=== PATIENT | male | born 1980 | race Caucasian/White ===

== ENCOUNTER 2017-03-26 21:25 | Emergency (ER) | payer SELFPAY ==
[2017-03-26 21:29] VITALS: BP 127/65
--- NOTE | 2017-03-26 21:42 | ER Document Report ---
ED Medical Screen (RME) - General Chief Complaint: Foot Injury Stated Complaint: RIGHT FOOT INJURY Time Seen by Provider: 03/26/17 21:36 TRAVEL OUTSIDE OF THE [place] IN LAST 30 DAYS: No - HPI Notes: 03/26/17 21:39 Patient presents to the ED complaining of right foot pain status post crush injury by 2 x 4 this midafternoon. Patient states that he has been having right foot pain ever since then that is sharp in nature. He is able to ambulate but is limping on that foot. Pain does not radiate. He is still able to move his foot in all directions. He denies any numbness or tingling. No known drug allergies. I have treated and performed a rapid initial assessment of this patient. A comprehensive ED assessment and evaluation of the patient, analysis of test results and completion of medical decision making process will be conducted by additional ED providers. Past Medical History Renal/ Medical History: Denies: Hx Peritoneal Dialysis Review of Systems - Review of Systems Cardiovascular: denies: Chest pain Respiratory: denies: Short of breath Physical Exam - Vital signs Vitals: Temp Pulse Resp BP Pulse Ox 98.1 F 82 18 127/65 H 97 03/26/17 21:28 03/26/17 21:28 03/26/17 21:28 03/26/17 21:28 03/26/17 21:28 - Extremities Ankle: Nontender. No: Deformity, Ecchymosis Foot: Tender - metatarsals approx #2-4 Rt foot, Other - Pulses 2+. Sensation intact distal. Course - Vital Signs Vital signs: Temp Pulse Resp BP Pulse Ox 98.1 F 82 18 127/65 H 97 03/26/17 21:28 03/26/17 21:28 03/26/17 21:28 03/26/17 21:28 03/26/17 21:28
--- NOTE | 2017-03-26 21:49 | ER Document Report ---
ED Extremity Problem, Lower - General Mode of Arrival: Wheelchair Information source: Patient TRAVEL OUTSIDE OF THE [place] IN LAST 30 DAYS: No - HPI Patient complains to provider of: Injury, Pain, Swelling Location: Foot - right Occurred: This afternoon - Refer to HPI notes <JANETTE KING - Last Filed: 03/26/17 21:56> <CORINA DA SILAV - Last Filed: 03/26/17 22:10> - General Chief Complaint: Foot Injury Stated Complaint: RIGHT FOOT INJURY Time Seen by Provider: 03/26/17 21:36 Notes: Patient is a 36-year-old male presenting to the emergency department right foot after an injury. Patient had a 2 x 6 fall and landed on the top of his right foot at noon today. Patient states he was helping his friend build a shed when the flat part of the board came down on top of his right foot. Patient states it did not hurt at first but gradually he has had increased pain and swelling to the area. Patient also states that he has some pain to his right lateral rib cage which only hurts occasionally and he states he has had it for a long time. Patient has no surgical history and is not on any regular medications except for a complete vitamin daily. Patient occasionally smokes. Patient used to be a heavy alcohol user but now only drinks alcohol on occasion. (JANETTE KING) Past Medical History - General Information source: Patient - Social History Smoking Status: Current Some Day Smoker Frequency of alcohol use: Occasional Drug Abuse: None Family History: None Patient has suicidal ideation: No Patient has homicidal ideation: No - Medical History Medical History: Negative Surgical Hx: Negative <JANETTE KING - Last Filed: 03/26/17 21:56> Review of Systems - Review of Systems Constitutional: No symptoms reported EENT: No symptoms reported Cardiovascular: No symptoms reported Respiratory: No symptoms reported Gastrointestinal: No symptoms reported Genitourinary: No symptoms reported Male Genitourinary: No symptoms reported Musculoskeletal: See HPI Skin: No symptoms reported Hematologic/Lymphatic: No symptoms reported Neurological/Psychological: No symptoms reported -: Yes All other systems reviewed and negative <JANETTE KING - Last Filed: 03/26/17 21:56> Physical Exam - Vital signs Interpretation: Normal <JANETTE KING - Last Filed: 03/26/17 21:56> <CORINA DA SILVA - Last Filed: 03/26/17 22:10> - Vital signs Vitals: Temp Pulse Resp BP Pulse Ox 98.1 F 82 18 127/65 H 97 03/26/17 21:28 03/26/17 21:28 03/26/17 21:28 03/26/17 21:28 03/26/17 21:28 - Notes Notes: GENERAL: Alert, interacts well. No acute distress. HEAD: Normocephalic, atraumatic. EYES: Appear normal. Pupils equal, round, and reactive to light. ENT: Moist mucus membranes, tongue midline. NECK: Full range of motion. Supple. Trachea midline. LUNGS: Clear to auscultation bilaterally, no wheezes, rales, or rhonchi. No respiratory distress. Some mild tenderness to palpation over the right lateral rib cage which is not a new acute symptom. HEART: Regular rate and rhythm. No murmurs, gallops, or rubs. ABDOMEN: Soft, non-tender. Non-distended. Normal bowel sounds. EXTREMITIES: Moves all 4 extremities spontaneously. Tenderness to palpation of the right dorsal distal foot, there is also some slight discoloration and swelling to the right dorsal distal foot. NEUROLOGICAL: Alert and oriented x3. Normal speech. No focal neurological deficits. GSC 15. PSYCH: Normal affect, normal mood. SKIN: Warm, dry, normal turgor. No rashes or lesions noted. (JANETTE KING) Course - Diagnostic Test Radiology reviewed: Image reviewed - No fracture is seen in the right foot. <CORINA DA SILVA - Last Filed: 03/26/17 22:10> - Vital Signs Vital signs: Temp Pulse Resp BP Pulse Ox 98.1 F 82 18 127/65 H 97 03/26/17 21:28 03/26/17 21:28 03/26/17 21:28 03/26/17 21:28 03/26/17 21:28 Discharge <JANETTE KING - Last Filed: 03/26/17 21:56> <CORINA DA SILVA - Last Filed: 03/26/17 22:10> - Discharge Clinical Impression: Contusion of foot, right Qualifiers: Encounter type: initial encounter Qualified Code(s): S90.31XA - Contusion of right foot, initial encounter Condition: Stable Disposition: HOME, SELF-CARE Additional Instructions: Contusion: Your injury has resulted in a contusion -- a crushing of the deep tissues. No injury to important structures was detected during the physician's exam. Contusions vary in the amount of pain they cause, and in the length of time required for healing. Typically, the area will become bruised, and will remain painful to touch for two or three weeks. However, most patients are back to working and playing within a few days. After the initial period of rest and cold-packs, your symptoms (together with the doctor's recommendations) will determine how rapidly you can get back to full activity. Usually this means "do what feels okay, but don't do things that hurt." If re-examination was recommended, it's important to follow up as instructed. Call the doctor or return any time if pain increases, if swelling becomes severe, if you develop numbness or weakness in an injured extremity, or if any other alarming symptoms occur. ELEVATE THE FOOT ALL THE TIME. LIMIT WALKING AND WEIGHT BEARING. USE ICE-PACKS THE FIRST 12-24 HOURS. TAKE THE PAIN MEDICATION PRESCRIBED. FOLLOW UP WITH A LOCAL MEDICAL DOCTOR OR ORTHOPEDIC DOCTOR IF NOT IMPROVING. Prescriptions: Hydrocodone/Acetaminophen [[place] 5-325 mg Tablet] 1 tab PO Q4 PRN #15 tablet PRN Reason: Sebastianibe Attestation: 03/26/17 22:09 I personally performed the services described in the documentation, reviewed and edited the documentation which was dictated to the scribe in my presence, and it accurately records my words and actions. (CORINA DA SILVA) Becky Documentation - Scribe Written by Becky:: Becky An, 03/26/2017 21:55 acting as scribe for :: Adelfo <JANETTE KING - Last Filed: 03/26/17 21:56>
[2017-03-26] MEDS ORDERED: HYDROCODONE/ACETAMINOPHEN 5-325 MG 6 TAB/DSPK PO PRN (22:09)
--- NOTE | 2017-03-26 22:11 | RADIOLOGY REPORT (SQ) ---
EXAM DESCRIPTION: FOOT RIGHT COMPLETE COMPLETED DATE/TIME: 03/26/2017 10:02 pm REASON FOR STUDY: right foot pain s/p crush injury COMPARISON: None. NUMBER OF VIEWS: Three views. TECHNIQUE: AP, lateral and oblique radiographic images acquired of the right foot. LIMITATIONS: None. FINDINGS: MINERALIZATION: Normal. BONES: No acute fracture or dislocation. No worrisome bone lesions. JOINTS: No effusions. SOFT TISSUES: No soft tissue swelling. No foreign body. OTHER: No other significant finding. IMPRESSION: NEGATIVE STUDY OF THE RIGHT FOOT. NO RADIOGRAPHIC EVIDENCE OF ACUTE INJURY. TECHNICAL DOCUMENTATION: JOB ID: [id number] [employer]- All Rights Reserved
== END 2017-03-26 22:26 | disposition home or self-care (01) ==
LOC: ER 21:25
DX: S90.31XA Contusion of right foot, initial encounter (principal); M79.671 Pain in right foot; M79.89 Other specified soft tissue disorders; R07.81 Pleurodynia; F17.200 Nicotine dependence, unspecified, uncomplicated; W17.89XA Other fall from one level to another, initial encounter
CPT/HCPCS: 99283

== ENCOUNTER 2017-05-08 07:41 | Emergency (ER) | payer SELFPAY ==
[2017-05-08] MEDS ORDERED: ACYCLOVIR 200 MG CAPSULE PO ONE ×3 (09:07→09:53)
[2017-05-08] MEDS ORDERED: PREDNISONE 20 MG TABLET PO ONE (09:07)
[2017-05-08] MEDS ORDERED: ACYCLOVIR 800 MG TABLET PO ONE (09:09)
--- NOTE | 2017-05-08 09:13 | ER Document Report ---
ED General - General Chief Complaint: Rash Stated Complaint: POSSIBLE RASH Time Seen by Provider: 05/08/17 08:28 TRAVEL OUTSIDE OF THE [place] IN LAST 30 DAYS: No - HPI Patient complains to provider of: Rash Notes: Patient coming in for evaluation of her rash. Patient states ongoing for the last 3 days started on his back spread now to his underarm region and down to top of his chest states painful burning sensation. Patient does state that he had chickenpox when he was a child in a history of fevers chills nausea vomiting diarrhea patient is on the chemotherapy or immunocompromising drugs at this time. Patient states that taking any medication soap applying talcum powder to the area for his treatment plans - Related Data Allergies/Adverse Reactions: No Known Allergies Allergy (Verified 05/08/17 07:59) Past Medical History - Social History Smoking Status: Unknown if Ever Smoked Family History: None Patient has suicidal ideation: No Patient has homicidal ideation: No Renal/ Medical History: Denies: Hx Peritoneal Dialysis - Immunizations Hx Diphtheria, Pertussis, Tetanus Vaccination: Yes Review of Systems - Review of Systems Constitutional: No symptoms reported EENT: No symptoms reported Cardiovascular: No symptoms reported Respiratory: No symptoms reported Gastrointestinal: No symptoms reported Genitourinary: No symptoms reported Male Genitourinary: No symptoms reported Musculoskeletal: No symptoms reported Skin: Rash Hematologic/Lymphatic: No symptoms reported Neurological/Psychological: No symptoms reported -: Yes All other systems reviewed and negative Physical Exam - Vital signs Vitals: Temp Pulse Resp BP Pulse Ox 98.1 F 96 18 113/64 97 05/08/17 07:57 05/08/17 07:57 05/08/17 07:57 05/08/17 07:57 05/08/17 07:57 Interpretation: Normal - General General appearance: Appears well, Alert - HEENT Head: Normocephalic, Atraumatic Eyes: Normal Pupils: PERRL - Respiratory Respiratory status: No respiratory distress Chest status: Nontender Breath sounds: Normal Chest palpation: Normal - Cardiovascular Rhythm: Regular Heart sounds: Normal auscultation Murmur: No - Abdominal Inspection: Normal Distension: No distension Bowel sounds: Normal Tenderness: Nontender Organomegaly: No organomegaly - Back Back: Normal, Nontender - Extremities General upper extremity: Normal inspection, Nontender, Normal color, Normal ROM , Normal temperature General lower extremity: Normal inspection, Nontender, Normal color, Normal ROM , Normal temperature, Normal weight bearing. No: Martha's sign - Neurological Neuro grossly intact: Yes Cognition: Normal Orientation: AAOx4 [place] Coma Scale Eye Opening: Spontaneous [place] Coma Scale Verbal: Oriented [place] Coma Scale Motor: Obeys Commands [place] Coma Scale Total: 15 Speech: Normal Motor strength normal: LUE, RUE, LLE, RLE Sensory: Normal - Psychological Associated symptoms: Normal affect, Normal mood - Skin Skin Temperature: Warm Skin Moisture: Dry Skin Color: Other - Blistering rash with vesicles starting along the left side the back going underneath the axilla to the top of the chest consistent with shingles. Rash is dermatomal in nature Course - Re-evaluation Re-evalutation: 05/08/17 13:39 Patient presents with shingles. Will start on antivirals steroids and Neurontin for pain control recommend also take Tylenol Motrin. Patient was also recommended follow-up primary care physician - Vital Signs Vital signs: Temp Pulse Resp BP Pulse Ox 98.0 F 80 18 115/60 97 05/08/17 09:37 05/08/17 09:37 05/08/17 09:37 05/08/17 09:37 05/08/17 09:37 Discharge - Discharge Clinical Impression: Shingles Qualifiers: Herpes zoster complications: without complications Qualified Code(s): B02.9 - Zoster without complications Condition: Good Disposition: HOME, SELF-CARE Instructions: Shingles ([facility] [place]) Additional Instructions: Please follow-up with your primary care physician. Your examination is consistent with a shingles infection which is a viral infection on the nerves that run along the skin. We will treat you with antiviral medication called acyclovir steroids, prednisone will help out with inflammation and Neurontin for the pain. It is very important to follow-up with your physician Prescriptions: Acyclovir 800 mg PO 5XD 7 Days tablet Gabapentin [Neurontin 300 mg Capsule] 300 mg PO Q8 #90 cap Prednisone [Deltasone] 60 mg PO DAILY #24 tablet Forms: Return to Work Referrals: ELROY RABAGO MD [COMMUNITY BASED STAFF] - Follow up as needed
[2017-05-08 09:39] VITALS: BP 115/60
== END 2017-05-08 09:39 | disposition home or self-care (01) ==
LOC: ER 07:41
DX: B02.9 Zoster without complications (principal)
CPT/HCPCS: 99282; J7512

== ENCOUNTER 2018-08-08 08:30 | Emergency (ER) | payer OTHER ==
[2018-08-08] MEDS ORDERED: PREDNISONE 20 MG TABLET PO ONE (09:12)
[2018-08-08] MEDS ORDERED: IBUPROFEN 600 MG TABLET PO ONE (09:12)
[2018-08-08] MEDS ORDERED: CYCLOBENZAPRINE HCL 10 MG TABLET PO ONE (09:12)
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
[2018-08-08 10:33] VITALS: BP 125/75
== END 2018-08-08 10:40 | disposition home or self-care (01) ==
LOC: ER 08:30
DX: S29.012A Strain of muscle and tendon of back wall of thorax, initial encounter (principal); M54.2 Cervicalgia; M54.5 Low back pain; V49.50XA Passenger injured in collision with unspecified motor vehicles in traffic accident, initial encounter
CPT/HCPCS: 99284; 72110; J7512

== ENCOUNTER 2019-12-03 08:26 | Emergency (ER) | payer OTHER ==
[2019-12-03 09:40] VITALS: BP 129/67
--- NOTE | 2019-12-03 16:00 | ER Document Report ---
Entered by FABIOLA SAHU SCRIBE 12/03/19 0854 Acting as scribe for:ANDREW PIERRE MD ED General - General Chief Complaint: Hemorrhoids Stated Complaint: POSSIBLE HEMORRHOIDS Time Seen by Provider: 12/03/19 08:45 Information source: Patient Notes: This 39 year old male patient presents to the emergency department today with complaints of hemorrhoids for the past x6 days. Patient states there was blood from the hemorrhoids last night. Patient denies pain but states they are uncomfortable. Patient states his bowel movement is normal and denies having diarrhea. Patient states he usually get hemorrhoids but they do not usually bleed. TRAVEL OUTSIDE OF THE [place] IN LAST 30 DAYS: No - Related Data Allergies/Adverse Reactions: No Known Allergies Allergy (Verified 12/03/19 08:31) Home Medications: multivitamin. potassium. allergy. ibuprofen. percocet Past Medical History - General Information source: Patient - Social History Smoking Status: Never Smoker Cigarette use (# per day): No Chew tobacco use (# tins/day): No Frequency of alcohol use: None Drug Abuse: None Family History: None Patient has suicidal ideation: No Patient has homicidal ideation: No - Immunizations Hx Diphtheria, Pertussis, Tetanus Vaccination: Yes Review of Systems - Review of Systems Constitutional: No symptoms reported EENT: No symptoms reported Cardiovascular: No symptoms reported Respiratory: No symptoms reported Gastrointestinal: See HPI, Other - Hemorrhoids. denies: Diarrhea Genitourinary: No symptoms reported Male Genitourinary: No symptoms reported Musculoskeletal: No symptoms reported Skin: No symptoms reported Hematologic/Lymphatic: No symptoms reported Neurological/Psychological: No symptoms reported -: Yes All other systems reviewed and negative Physical Exam - Vital signs Vitals: Temp Pulse Resp BP Pulse Ox 98 F 72 18 141/83 H 96 12/03/19 08:29 12/03/19 08:29 12/03/19 08:29 12/03/19 08:29 12/03/19 08:29 - General General appearance: Appears well, Alert - HEENT Head: Normocephalic, Atraumatic Eyes: Normal Pupils: PERRL - Respiratory Respiratory status: No respiratory distress Chest status: Nontender Breath sounds: Normal Chest palpation: Normal - Cardiovascular Rhythm: Regular Heart sounds: Normal auscultation Murmur: No - Abdominal Inspection: Obese Distension: No distension Bowel sounds: Normal Tenderness: Nontender Organomegaly: No organomegaly - Rectal Hemorrhoids: External - Enlarged and non-tender. Not actively bleeding. - Extremities General upper extremity: Normal inspection. No: Edema General lower extremity: Normal inspection. No: Edema - Neurological Neuro grossly intact: Yes Cognition: Normal Orientation: AAOx4 - Psychological Associated symptoms: Normal affect, Normal mood - Skin Skin Temperature: Warm Skin Moisture: Dry Skin Color: Normal Course - Re-evaluation Re-evalutation: 12/03/19 09:14 Patient resting comfortably no active lower GI bleed at this moment. Patient has external hemorrhoids that are engorged. Nontender on exam. Though stool tested positive on the stool guaiac there was no melena noted as well as no active hemorrhage at this time. - Vital Signs Vital signs: Temp Pulse Resp BP Pulse Ox 98.2 F 86 16 129/67 H 98 12/03/19 09:39 12/03/19 09:39 12/03/19 09:39 12/03/19 09:39 12/03/19 09:39 Discharge - Discharge Clinical Impression: External hemorrhoid, bleeding Condition: Stable Disposition: HOME, SELF-CARE Additional Instructions: Hemorrhoids You have hemorrhoids. These are formed by enlargement of veins around the anus. The cause is increased pressure in the veins, from or straining at bowel movements. Hemorrhoids often cause itching and bleeding with bowel movements. When a hemorrhoid becomes clotted, severe pain and swelling result. Soothing creams and suppositories are often prescribed. Warm sitz-baths may also decrease pain, swelling, and itching. Eat a high-fiber diet. Stool softeners such as Metamucil will help. Keep the area very clean. Medicated cleansing pads (such as Tucks) are useful after bowel movements. A hose-mounted shower unit (like a shower massager at low water pressure) can be used to clean around tender hemorrhoid tags. You should call the doctor or return if you develop fever, increasing pain, or an enlarging mass around the anus, or if you simply fail to improve with treatment. Prescriptions: Hydrocortisone [Anusol-Hc] 30 gm RC BID 7 Days #7 cream.gm. I personally performed the services described in the documentation, reviewed and edited the documentation which was dictated to the scribe in my presence, and it accurately records my words and actions.
== END 2019-12-03 09:40 | disposition home or self-care (01) ==
LOC: ER 08:26
DX: K64.4 Residual hemorrhoidal skin tags (principal); Z79.899 Other long term (current) drug therapy; Z79.1 Long term (current) use of non-steroidal anti-inflammatories (NSAID); Z79.891 Long term (current) use of opiate analgesic
CPT/HCPCS: 82270; 99283

== ENCOUNTER 2020-06-27 07:23 | Emergency (ER) | payer OTHER ==
[2020-06-27 07:31] VITALS: BP 132/84
== END 2020-06-27 13:49 | disposition left against medical advice (07) ==
LOC: ER 07:23
DX: Z53.21 Procedure and treatment not carried out due to patient leaving prior to being seen by health care provider (principal)